=== PATIENT | female | born 1980 | race Caucasian/White ===

== ENCOUNTER 2017-01-31 14:12 | Emergency (ER) | payer OTHER ==
[~2017-01-31 14:12] MED LIST: ASPIRIN; ASPIRIN81 MG; BACTRIM DS TABL1 TA1 PO; BACTRIM DS TABL1 TA2 PO; CHANTIX1 MG PO; CLEOCIN HCL300 M1 PO; DEPO-PROVER150 MG/M1 IM; FIORICET 50-321 EACH PO; KEPPRA750 MG PO; KLONOPIN; LACRI-LUBE NP OI1 UD OD; LAMICTAL; LOW DOSE ASPIRI81 M1 PO; MEDROL4 MG/DOSE- PO; PROZAC; TYLENOL #3 PO; ZOFRANODT PO; ZOVIRAX800 MG PO; [UNRECOGNIZED DRUG - REMARK]
== END 2017-01-31 15:00 | disposition home or self-care (01) ==
LOC: CFTX 14:12
DX: L23.7 Allergic contact dermatitis due to plants, except food (principal); R56.9 Unspecified convulsions; F17.210 Nicotine dependence, cigarettes, uncomplicated; Z88.0 Allergy status to penicillin; Z91.030 Bee allergy status
CPT/HCPCS: 96372; 99283; J2930

== ENCOUNTER 2017-02-12 19:01 | Emergency (ER) | payer OTHER ==
--- NOTE | ~2017-02-12 | CR142 ---
[facility] A Service of [facility] & [facility] RADIOLOGY TEXT RESULTS PATIENT: OTTO BLOCK LOCATION: [facility] : 82 UNIT #: [id number] AGE: [address]: River Huerta SEX: F ORDER DR: [id number] [facility] [address] [place], [place] [address] [id number] E MR#: [id number] Acc #: [id number] NAME: OTTO BLOCK : 1980 SEX: F STUDY DATE/TIME: 02/12/2017 19:19 UNIT: [facility] ROOM: STUDY DESCRIPTION: CR Hand Min 3 Views Rt Attending Physician: River Huerta Ordering Physician: Ed Riley Fernández M.D. Primary Care Physician: Primary Care Physician No MEDICAL IMAGING REPORT This report is preliminary unless electronic signature is present EXAM Right hand INDICATION Right hand pain and swelling. Punched a pole. FINDINGS 3 views of the right hand without comparison. There is no acute fracture or dislocation. Alignment is anatomic. There is soft tissue swelling over the dorsum of the hand. IMPRESSION Dorsal soft tissue swelling. No fractures. Dictated by... Dirk Farah M.D. THIS IS AN ELECTRONICALLY VERIFIED REPORT Dirk Farah M.D. at 02/13/2017 3:24 PM NATALIIA/jimena TD: 02/12/2017 23:17 JOB #: [id number] MEDICAL IMAGING REPORT Page 1 of 1 COPY
== END 2017-02-12 20:00 | disposition home or self-care (01) ==
LOC: CFTX 19:01
DX: S60.221A Contusion of right hand, initial encounter (principal); R56.9 Unspecified convulsions; Z88.0 Allergy status to penicillin; Z88.8 Allergy status to other drugs, medicaments and biological substances; Z79.899 Other long term (current) drug therapy; W22.8XXA Striking against or struck by other objects, initial encounter; Y92.009 Unspecified place in unspecified non-institutional (private) residence as the place of occurrence of the external cause
CPT/HCPCS: 73130; 99283

== ENCOUNTER 2017-03-11 13:43 | Emergency (ER) | payer OTHER ==
[2017-03-11 13:18] LABS: URINE SOURCE CLEAN CATCH
[2017-03-11 13:24] LABS: URINE APPEARANCE CLOUDY; URINE BILIRUBIN NEG (NEG); URINE BLOOD NEG (NEG); URINE COLOR YELLOW; URINE GLUCOSE NEG (NEG); URINE KETONE NEG (NEG); URINE LEUKOCYTE ESTERASE NEG (NEG); URINE NITRATE NEG (NEG); URINE PROTEIN NEG (NEG); URINE SPECIFIC GRAVITY 1.006 (1.003-1.035); URINE UROBILINOGEN 0.2 MG/DL (NEG)
[2017-03-11 13:24] LABS: BASOPHIL# 0.1 X10e3 (0-0.3); BASOPHIL% 0.5 % (0-2.5); DIFF IND NO; EOSINOPHIL# 0.3 X10e3 (0-0.7); EOSINOPHIL% 2.8 % (0.0-7.0); HEMATOCRIT 46.2 % (35.0-45.0); HEMOGLOBIN 15.5 gm/dL (12.0-16.0); LYMPHOCYTE# 2.7 X10e3 (1.0-3.5); LYMPHOCYTE% 26.6 % (17.0-45.0); MEAN CELL VOLUME 96.8 FL (83-96); MEAN CORPUSCULAR HEMOGLOBIN 32.6 PG (28-34); MEAN CORPUSCULAR HGB CONC 33.6 g/dL (30-36); MEAN PLATELET VOLUME 7.9 FL (6.5-11.5); MONOCYTE# 0.9 X10e3 (0-1.0); MONOCYTE% 9.2 % (3.0-12.0); NEUTROPHIL# 6.1 X10e3 (1.5-7.1); NEUTROPHIL% 60.9 % (40-75); PLATELET COUNT 284 X10e3 (140-420); RED BLOOD COUNT 4.77 X10e (3.90-5.30); RED CELL DISTRIBUTION WIDTH 12.6 % (11.0-15.5)
[2017-03-11 13:27] LABS: CULTURE INDICATED? NO
[2017-03-11 13:57] LABS: BILIRUBIN, DIRECT 0.1 mg/dL (0.0-0.2); BILIRUBIN,INDIRECT 0.4 mg/dL (0.0-0.9); BILIRUBIN,TOTAL 0.5 mg/dL (0.2-2.0); BUN/CREATININE RATIO 8.57; CALCIUM SERUM 8.9 mg/dL (8.4-10.2); CREATININE SERUM 0.7 mg/dL (0.6-1.4); GLOM FILT RATE Estimated 112.3 mL/min (>60); POTASSIUM 3.8 mmol/L (3.5-5.1); PROTEIN TOTAL SERUM 8.3 g/dL (6.0-8.3)
== END 2017-03-11 15:23 | disposition home or self-care (01) ==
LOC: CFTX 13:43
PROVIDERS: Physician Assistant Medical
DX: R11.2 Nausea with vomiting, unspecified (principal); R19.7 Diarrhea, unspecified; F41.9 Anxiety disorder, unspecified; F17.210 Nicotine dependence, cigarettes, uncomplicated; Z91.030 Bee allergy status; Z88.0 Allergy status to penicillin
CPT/HCPCS: 36415; 80048; 80076; 81003; 82150; 83690; 84703; 85025; 96361; 96374; 99284; J2405

== ENCOUNTER 2017-04-04 03:04 | Emergency (ER) | payer OTHER ==
--- NOTE | ~2017-04-04 | CR72 ---
[facility] A Service of [facility] & [facility] RADIOLOGY TEXT RESULTS PATIENT: OTTO BLOCK LOCATION: [facility] : 81 UNIT #: [id number] AGE: [address]: Farheen Shabazz MD SEX: F ORDER DR: [id number] [facility] [address] [place], [place] [address] [id number] P MR#: [id number] Acc #: [id number] NAME: OTTO BLOCK : 1980 SEX: F STUDY DATE/TIME: 04/04/2017 3:31 UNIT: [facility] ROOM: STUDY DESCRIPTION: CR Chest Single View Portable Attending Physician: Farheen Shabazz M.D. Ordering Physician: Farheen Shabazz M.D. Primary Care Physician: Generic Doctor Not In System MEDICAL IMAGING REPORT This report is preliminary unless electronic signature is present EXAM Single view chest INDICATIONS Mid chest pain for 1 day. FINDINGS Single portable AP view of the chest compared to 12/26/2016. Heart and mediastinal contour is normal. The lungs are clear. No pleural effusion. IMPRESSION No acute cardiopulmonary findings. Dictated by... Dirk Farah M.D. THIS IS AN ELECTRONICALLY VERIFIED REPORT Dirk Farah M.D. at 04/04/2017 5:15 AM NATALIIA/jimena TD: 04/04/2017 04:38 JOB #: [id number] MEDICAL IMAGING REPORT Page 1 of 1 COPY
--- NOTE | ~2017-04-04 | EKG ---
PATIENT: OTTO BLOCK UNIT #: [id number] Ventricular Rate: 117 BPM Atrial Rate: 117 BPM P-R Interval: 126 ms QRS Duration: 84 ms Q-T Interval: 328 ms QTC Calculation(Bezet): 457 ms P Cherokee: 77 degrees Calculated R Cherokee: 65 degrees Calculated T Cherokee: 76 degrees Diagnosis Line: Sinus tachycardia Diagnosis Line: Otherwise normal ECG Diagnosis Line: When compared with ECG of 26-DEC-2016 16:18, Diagnosis Line: No significant change was found Diagnosis Line: Confirmed by DARIO DOUGLASS MD ([id number]) on Diagnosis Line: 04/04/2017 1:36:52 PM INTERPRETING MD: RAFAT GRAHAM
[2017-04-04 04:19] LABS: BASOPHIL# 0.1 X10e3 (0-0.3); BASOPHIL% 1.1 % (0-2.5); EOSINOPHIL# 0.2 X10e3 (0-0.7); EOSINOPHIL% 2.7 % (0.0-7.0); HEMATOCRIT 42.1 % (35.0-45.0); HEMOGLOBIN 14.1 gm/dL (12.0-16.0); LYMPHOCYTE# 2.6 X10e3 (1.0-3.5); LYMPHOCYTE% 36.7 % (17.0-45.0); MEAN CELL VOLUME 96.3 FL (83-96); MEAN CORPUSCULAR HEMOGLOBIN 32.2 PG (28-34); MEAN CORPUSCULAR HGB CONC 33.4 g/dL (30-36); MONOCYTE# 0.4 X10e3 (0-1.0); MONOCYTE% 5.6 % (3.0-12.0); NEUTROPHIL# 3.9 X10e3 (1.5-7.1); NEUTROPHIL% 53.9 % (40-75); PLATELET COUNT 201 X10e3 (140-420); RED BLOOD COUNT 4.37 X10e (3.90-5.30); RED CELL DISTRIBUTION WIDTH 12.7 % (11.0-15.5); WHITE BLOOD COUNT 7.2 X10e3 (4.0-10.5)
[2017-04-04 04:20] LABS: DIFF IND NO
[2017-04-04 04:33] LABS: POC - CKMB 1.7 ng/mL (0.0-7.9); POC - TROPONIN <0.05 ng/mL (<=0.05)
[2017-04-04 04:37] LABS: URINE SOURCE CLEAN CATCH
[2017-04-04 04:40] LABS: URINE APPEARANCE CLEAR; URINE BILIRUBIN NEG (NEG); URINE BLOOD NEG (NEG); URINE COLOR YELLOW; URINE GLUCOSE NEG (NEG); URINE KETONE NEG (NEG); URINE LEUKOCYTE ESTERASE NEG (NEG); URINE NITRATE NEG (NEG); URINE PROTEIN NEG (NEG); URINE SPECIFIC GRAVITY 1.015 (1.003-1.035)
[2017-04-04 04:43] LABS: CULTURE INDICATED? NO
[2017-04-04 04:50] LABS: AMPHETAMINE POS (NEG); BARBITURATES NEG (NEG); BENZODIAZEPINES NEG (NEG); COCAINE NEG (NEG); MARIJUANA NEG (NEG); OPIATES NEG (NEG); TRICYCLIC ANTIDEPRESSANTS NEG (NEG); U METHADONE NEG (NEG)
[2017-04-04 04:54] LABS: ALBUMIN SERUM 4.5 g/dL (3.5-5.0); BILIRUBIN, DIRECT 0.2 mg/dL (0.0-0.2); BILIRUBIN,INDIRECT 0.7 mg/dL (0.0-0.9); BILIRUBIN,TOTAL 0.9 mg/dL (0.2-2.0); BUN/CREATININE RATIO 8.75; CALCIUM SERUM 8.3 mg/dL (8.4-10.2); CREATININE SERUM 0.8 mg/dL (0.6-1.4); GLOM FILT RATE Estimated 95.6 mL/min (>60); POTASSIUM 3.9 mmol/L (3.5-5.1); PROTEIN TOTAL SERUM 7.1 g/dL (6.0-8.3)
[2017-04-04 06:32] LABS: POC - CKMB 1.3 ng/mL (0.0-7.9); POC - TROPONIN <0.05 ng/mL (<=0.05)
== END 2017-04-04 07:45 | disposition home or self-care (01) ==
LOC: CED 03:04 → CFTX 06:01 → CED 06:01
PROVIDERS: Student in an Organized Health Care Education/Training Program
DX: R07.89 Other chest pain (principal); F41.9 Anxiety disorder, unspecified; F17.200 Nicotine dependence, unspecified, uncomplicated; F10.129 Alcohol abuse with intoxication, unspecified; F15.10 Other stimulant abuse, uncomplicated; Z98.51 Tubal ligation status; Z88.0 Allergy status to penicillin; Z88.8 Allergy status to other drugs, medicaments and biological substances; Z91.030 Bee allergy status
CPT/HCPCS: 36415; 71010; 80048; 80076; 80307; 81003; 82553; 84484; 85025; 93005; 96361; 96374; 99284; G0480; J2060

== ENCOUNTER 2017-04-13 01:19 | Emergency (ER) | payer OTHER ==
--- NOTE | ~2017-04-13 | CR93 ---
[facility] A Service of [facility] & [facility] RADIOLOGY TEXT RESULTS PATIENT: OTTO BLOCK LOCATION: [facility] : 82 UNIT #: [id number] AGE: [address]: ROB CAGLE APRN SEX: F ORDER DR: [id number] [facility] [address] [place], [place] [address] [id number] E MR#: [id number] Acc #: [id number] NAME: OTTO BLOCK : 1980 SEX: F STUDY DATE/TIME: 04/13/2017 3:51 UNIT: [facility] ROOM: STUDY DESCRIPTION: CR Elbow Min 3 Views Lt Attending Physician: Rob Cagle Aprn Ordering Physician: Rob Cagle Aprn Primary Care Physician: No Primary Care Physician MEDICAL IMAGING REPORT This report is preliminary unless electronic signature is present EXAM Left elbow, 04/13/2017. HISTORY 36-year-old female in the ED complaining of elbow pain and soft tissue laceration after a fall. TECHNIQUE Three-view left elbow series. FINDINGS No fracture, dislocation, or other acute osseous abnormality. Posterior soft tissue laceration at the level of the proximal ulna. No visible radiopaque soft tissue foreign body or joint effusion. IMPRESSION Posterior soft tissue laceration. Left elbow series, otherwise negative. Dictated by... Rodrigue Carbone M.D. THIS IS AN ELECTRONICALLY VERIFIED REPORT Rodrigue Carbone M.D. at 04/13/2017 9:56 PM DOMONIQUEW/jacki TD: 04/13/2017 12:13 JOB #: [id number] MEDICAL IMAGING REPORT Page 1 of 1 COPY
== END 2017-04-13 06:30 | disposition home or self-care (01) ==
LOC: CED 01:19
DX: S51.812A Laceration without foreign body of left forearm, initial encounter (principal); F41.9 Anxiety disorder, unspecified; F17.210 Nicotine dependence, cigarettes, uncomplicated; Z88.0 Allergy status to penicillin; Z88.6 Allergy status to analgesic agent; Z91.030 Bee allergy status; W18.30XA Fall on same level, unspecified, initial encounter; Y92.009 Unspecified place in unspecified non-institutional (private) residence as the place of occurrence of the external cause
CPT/HCPCS: 12001; 73080; 99283

== ENCOUNTER 2017-06-06 13:14 | Emergency (ER) | payer OTHER ==
[~2017-06-06] VITALS: Ht 157.5 cm; Wt 63.5 kg
--- NOTE | ~2017-06-06 | CR142 ---
[facility] A Service of [facility] & [facility] RADIOLOGY TEXT RESULTS PATIENT: OTTO BLOCK LOCATION: [facility] : 82 UNIT #: [id number] AGE: [address]: Kimi Solares APRN SEX: F ORDER DR: [id number] [facility] [address] [place] [address] [place], [place] [address] [id number] E MR#: [id number] Acc #: [id number] NAME: OTTO BLOCK : 1980 SEX: F STUDY DATE/TIME: 06/06/2017 14:42 UNIT: [facility] ROOM: STUDY DESCRIPTION: CR Hand Min 3 Views Rt Attending Physician: Kimi Solares A.P.R.N. Ordering Physician: Ed Riley Fernández M.D. Primary Care Physician: No Primary Care Physician MEDICAL IMAGING REPORT This report is preliminary unless electronic signature is present EXAM Right hand, 3 views; 06/06/2017, 1442 hours. HISTORY 36-year-old woman who suffered puncture wound in the web space between the first and second fingers of the right hand. Pain for 1 week. COMPARISON 02/12/2017 FINDINGS AP, lateral and oblique views demonstrate normal bone density. There is no fracture, dislocation or radiopaque foreign body. IMPRESSION Negative right hand. No foreign body seen. Dictated by... Kirstie Dickey M.D. THIS IS AN ELECTRONICALLY VERIFIED REPORT Kirstie Dickey M.D. at 06/06/2017 9:21 PM Kylah TD: 06/06/2017 21:15 JOB #: [id number] MEDICAL IMAGING REPORT Page 1 of 1 COPY
== END 2017-06-06 16:35 | disposition home or self-care (01) ==
LOC: CED 13:14 → CFTX 13:14
DX: L03.113 Cellulitis of right upper limb (principal); R03.0 Elevated blood-pressure reading, without diagnosis of hypertension; F41.9 Anxiety disorder, unspecified; G40.909 Epilepsy, unspecified, not intractable, without status epilepticus; F17.210 Nicotine dependence, cigarettes, uncomplicated; Z98.51 Tubal ligation status; Z88.0 Allergy status to penicillin; Z91.030 Bee allergy status; Z88.8 Allergy status to other drugs, medicaments and biological substances
CPT/HCPCS: 73130; 96372; 99283; J1100